=== PATIENT | female | born 1985 | race Caucasian/White ===

== ENCOUNTER → 2017-02-03 | Outpatient (CLI) | payer MEDICAID, SELFPAY ==
--- NOTE | 2017-02-04 06:50 | REP ---
PELVIC ULTRASOUND: Real-time sonographic evaluation of the pelvis performed utilizing transabdominal technique. Comparison made with prior study of 10/26/2014. Bladder measures 7.6 x 6.1 x 9.3 cm. Uterus is again noted to be markedly enlarged and heterogeneous consistent with fibroid changes. It measures 14.4 x 9.0 x 9.6 cm. The endometrial stripe is obliterated and not visualized. No intrauterine fluid collection is seen. There are multiple fibroids present. The largest fibroid seen measures 5.3 x 7.0 x 5.0 cm. Right ovary is normal in size and echotexture measuring 4.2 x 1.3 x 2.7 cm. There is no right ovarian torsion, with blood flow seen in the right ovary with duplex Doppler evaluation, RI 0.50. Left ovary could not be visualized. Trace free fluid is seen. IMPRESSION: Enlarged fibroid uterus as discussed in detail above. Signed by Darius Metzger MD 02/04/2017 08:34 P
== END ==
LOC: M RAD 15:14
PROVIDERS: ATTEND Physician Assistant
DX: R19.00 Intra-abdominal and pelvic swelling, mass and lump, unspecified site (principal); D25.1 Intramural leiomyoma of uterus

== ENCOUNTER → 2018-01-31 | Outpatient (CLI) | payer SELFPAY ==
[2018-01-31 15:32] LABS: BASO % 0.6 % (0.0-1.0); EOS % 0.4 % (0.0-3.0); HEMATOCRIT 27.2 % (36.0-47.0); HEMOGLOBIN 7.5 g/dl (12.0-15.5); LYMPH # 1.2 10^3/uL (1.5-4.5); LYMPH % 22.8 % (24.0-44.0); MEAN CORPUSCULAR HEMOGLOBIN 22.3 pg (27.0-33.0); MEAN CORPUSCULAR HGB CONC 27.6 g/dl (32.0-36.5); MONO # 0.4 10^3/uL (0.0-0.8); MONO % 8.2 % (0.0-5.0); NEUTROPHILS # 3.5 10^3/uL (1.8-7.7); NEUTROPHILS % 67.6 % (36.0-66.0); PLATELET COUNT, AUTOMATED 441 10^3/uL (150-450); RED BLOOD COUNT 3.36 10^6/uL (4.00-5.40); WHITE BLOOD COUNT 5.2 10^3/uL (4.0-10.0)
== END ==
LOC: M WUC 13:40
PROVIDERS: ATTEND Physician Assistant
DX: F41.0 Panic disorder [episodic paroxysmal anxiety] (principal)

== ENCOUNTER 2018-03-02 09:59 | Emergency (ER) | payer SELFPAY ==
[~2018-03-02] VITALS: Ht 162.6 cm; Wt 47.7 kg
[2018-03-02 10:31] LABS: BASO % 0.4 % (0.0-1.0); EOS % 0.7 % (0.0-3.0); HEMATOCRIT 34.2 % (36.0-47.0); HEMOGLOBIN 10.4 g/dl (12.0-15.5); LYMPH # 0.9 10^3/uL (1.5-4.5); LYMPH % 19.1 % (24.0-44.0); MEAN CORPUSCULAR HEMOGLOBIN 29.4 pg (27.0-33.0); MEAN CORPUSCULAR HGB CONC 30.4 g/dl (32.0-36.5); MEAN CORPUSCULAR VOLUME 96.6 fl (80.0-96.0); MONO # 0.4 10^3/uL (0.0-0.8); MONO % 8.7 % (0.0-5.0); NEUTROPHILS # 3.2 10^3/uL (1.8-7.7); NEUTROPHILS % 70.9 % (36.0-66.0); PLATELET COUNT, AUTOMATED 371 10^3/uL (150-450); RED BLOOD COUNT 3.54 10^6/uL (4.00-5.40); WHITE BLOOD COUNT 4.5 10^3/uL (4.0-10.0)
[2018-03-02 10:44] LABS: INR 0.92; PROTHROMBIN TIME 12.5 SECONDS (12.1-14.4)
[2018-03-02 10:45] LABS: PARTIAL THROMBOPLASTIN TIME 27.1 SECONDS (25.4-37.6)
[2018-03-02 11:08] LABS: HCG, SERUM QUALITATIVE NEGATIVE (NEGATIVE)
[2018-03-02 11:15] LABS: ANISOCYTOSIS 1+; HYPOCHROMASIA 1+
[2018-03-02 11:16] LABS: PLATELET ESTIMATE NORMAL (NORMAL)
[2018-03-02 12:20] VITALS: BP 117/66
[2018-03-02] MEDS ORDERED: IBUP-1022 PO (12:35)
--- NOTE | 2018-03-02 13:43 | REP ---
Pelvic sonography: History: Abnormal vaginal bleeding. Comparison pelvic sonography February 03, 2017. This prior study showed a uterine enlargement with a fibroid change. The largest fibroid seen then measured 7.0 cm. Fibroid uterine enlargement was observed sonographically in this patient on October 26, 2014 as well. Findings: Transabdominal and endovaginal scanning are performed. Uterine enlargement is again seen. Very little normal uterine tissue is visible. Heterogeneous fibroid uterine enlargement is observed. The endometrial stripe could not be identified or measured. The largest fibroid measures 8.8 x 7.3 x 8.2 cm which is larger than on previous study. Normal ovaries are seen bilaterally. The right ovary measures 4.4 x 1.9 x 3.8 cm. Left ovarian dimensions are 4.1 x 2.5 x 1.8 cm. Impression: Enlarged heterogeneous fibroid uterus. The largest fibroid seen today measures 8.8 cm in greatest diameter which represents interval enlargement when compared with January 2017 prior study. Electronically Signed by Gautam Foster MD 03/02/2018 07:39 P
--- NOTE | 2018-03-04 08:26 | ED PDOC ---
Post-Departure Follow-Up dr tobias faxed formal report of pelvic us for fu Graham Hu MD Mar 04, 2018 08:26
== END 2018-03-02 12:43 | disposition home or self-care (01) ==
LOC: M ED 09:59
DX: N93.8 Other specified abnormal uterine and vaginal bleeding (principal); D50.9 Iron deficiency anemia, unspecified

== ENCOUNTER 2018-04-07 09:18 | Emergency (ER) | payer OTHER, SELFPAY ==
[~2018-04-07] VITALS: Ht 160 cm; Wt 47.7 kg
[~2018-04-07 09:18] MED LIST: IBUP-1022 PO
[2018-04-07 09:57] LABS: BASO % 0.7 % (0.0-1.0); EOS # 0.1 10^3/uL (0.0-0.50); EOS % 1.7 % (0.0-3.0); HEMATOCRIT 28.7 % (36.0-47.0); HEMOGLOBIN 9.5 g/dl (12.0-15.5); LYMPH # 0.9 10^3/uL (1.5-4.5); LYMPH % 31.1 % (24.0-44.0); MEAN CORPUSCULAR HEMOGLOBIN 33.9 pg (27.0-33.0); MEAN CORPUSCULAR HGB CONC 33.1 g/dl (32.0-36.5); MEAN CORPUSCULAR VOLUME 102.5 fl (80.0-96.0); MONO # 0.3 10^3/uL (0.0-0.8); MONO % 8.4 % (0.0-5.0); NEUTROPHILS # 1.7 10^3/uL (1.8-7.7); NEUTROPHILS % 57.8 % (36.0-66.0); PLATELET COUNT, AUTOMATED 285 10^3/uL (150-450)
[2018-04-07 10:28] LABS: BLOOD UREA NITROGEN 5 MG/DL (7-18); CALCIUM LEVEL 8.3 MG/DL (8.5-10.1); CARBON DIOXIDE LEVEL 25 MEQ/L (21-32); CHLORIDE LEVEL 110 MEQ/L (98-107); CREATININE FOR GFR 0.68 MG/DL (0.55-1.30); GLOMERULAR FILTRATION RATE > 60.0 (>60); GLUCOSE, FASTING 114 MG/DL (70-100); POTASSIUM SERUM 4.6 MEQ/L (3.5-5.1); SODIUM LEVEL 141 MEQ/L (136-145)
[2018-04-07 10:43] VITALS: BP 110/65
== END 2018-04-07 11:11 | disposition home or self-care (01) ==
LOC: M ED 09:18
DX: D25.9 Leiomyoma of uterus, unspecified (principal); N93.8 Other specified abnormal uterine and vaginal bleeding

== ENCOUNTER 2018-05-02 08:16 | Emergency (ER) | payer OTHER, SELFPAY ==
[~2018-05-02] VITALS: Ht 160 cm; Wt 48.1 kg
[2018-05-02 09:05] LABS: HEMATOCRIT 34.1 % (36.0-47.0); MEAN CORPUSCULAR HEMOGLOBIN 34.1 pg (27.0-33.0); MEAN CORPUSCULAR HGB CONC 32.3 g/dl (32.0-36.5); MEAN CORPUSCULAR VOLUME 105.6 fl (80.0-96.0); PLATELET COUNT, AUTOMATED 326 10^3/uL (150-450); RED BLOOD COUNT 3.23 10^6/uL (4.00-5.40); WHITE BLOOD COUNT 3.3 10^3/uL (4.0-10.0)
[2018-05-02 09:30] LABS: BLOOD UREA NITROGEN 6 MG/DL (7-18); CALCIUM LEVEL 8.5 MG/DL (8.5-10.1); CARBON DIOXIDE LEVEL 25 MEQ/L (21-32); CHLORIDE LEVEL 109 MEQ/L (98-107); CREATININE FOR GFR 0.65 MG/DL (0.55-1.30); GLOMERULAR FILTRATION RATE > 60.0 (>60); GLUCOSE, FASTING 102 MG/DL (70-100); POTASSIUM SERUM 3.9 MEQ/L (3.5-5.1); SODIUM LEVEL 142 MEQ/L (136-145)
[2018-05-02 09:32] LABS: HCG, SERUM QUALITATIVE NEGATIVE (NEGATIVE)
[2018-05-02 10:00] VITALS: BP 108/67
== END 2018-05-02 10:03 | disposition home or self-care (01) ==
LOC: M ED 08:16
DX: N93.9 Abnormal uterine and vaginal bleeding, unspecified (principal); D25.9 Leiomyoma of uterus, unspecified; D64.9 Anemia, unspecified

== ENCOUNTER 2018-07-08 11:34 | Emergency (ER) | payer OTHER ==
[~2018-07-08] VITALS: Ht 160 cm; Wt 47.7 kg
[2018-07-08] MEDS ORDERED: ACET-683 PO (11:45)
[2018-07-08 12:20] LABS: HEMATOCRIT 35.8 % (36.0-47.0); HEMOGLOBIN 11.7 g/dl (12.0-15.5); MEAN CORPUSCULAR HEMOGLOBIN 34.3 pg (27.0-33.0); MEAN CORPUSCULAR HGB CONC 32.7 g/dl (32.0-36.5); PLATELET COUNT, AUTOMATED 309 10^3/uL (150-450); RED BLOOD COUNT 3.41 10^6/uL (4.00-5.40); WHITE BLOOD COUNT 3.7 10^3/uL (4.0-10.0)
[2018-07-08 12:47] LABS: BLOOD UREA NITROGEN 6 MG/DL (7-18); CALCIUM LEVEL 8.8 MG/DL (8.5-10.1); CARBON DIOXIDE LEVEL 27 MEQ/L (21-32); CHLORIDE LEVEL 109 MEQ/L (98-107); CREATININE FOR GFR 0.57 MG/DL (0.55-1.30); GLOMERULAR FILTRATION RATE > 60.0 (>60); GLUCOSE, FASTING 99 MG/DL (70-100); SODIUM LEVEL 141 MEQ/L (136-145)
[2018-07-08] MEDS ORDERED: NS 1,000 ML IV ONE (13:15)
--- NOTE | 2018-07-08 13:51 | REP ---
Clinical: Menorrhagia. Abnormal uterine bleeding. Technique: Transabdominal pelvic ultrasound followed by transvaginal examination for better evaluation of the endometrium and adnexa with color Doppler evaluation of the ovaries. Findings: Large heterogeneous diffusely myomatous uterus measures roughly 16.5 x 10.3 x 12.9 cm and innumerable fibroids distorting the normal uterine architecture and the endometrium is poorly evaluated. The largest discrete fibroids are identified measuring 6.5 x 5 cm, 6.3 x 6.6 x 5.8 cm, and 8.0 x 7.7 x 5.2 cm. Left ovary is not visualized. The right ovary is normal in appearance and vascularity without torsion and measures 4.4 x 1.6 x 3.1 cm. No ascites or adnexal mass. Impression: Heterogeneous enlarged diffusely myomatous uterus. Normal right ovary. Left ovary not visualized. Electronically Signed by Lew Hook MD 07/08/2018 01:43 P
[2018-07-08 14:01] LABS: CHLAMYDIA DNA AMPLIFICATION NEGATIVE (NEGATIVE); GC DNA AMPLIFICATION NEGATIVE (NEGATIVE)
[2018-07-08] MEDS ORDERED: ZOFR4TAB16 PO (14:24)
[2018-07-08] MEDS ORDERED: SPRI28TA PO (14:24)
[2018-07-08 14:36] VITALS: BP 104/68
--- NOTE | 2018-07-10 07:33 | ED PDOC ---
Post-Departure Follow-Up dr zapata faxed formal report of pelvic us for fu Graham Hu MD July 10, 2018 07:33
== END 2018-07-08 14:38 | disposition home or self-care (01) ==
LOC: M ED 11:34
DX: N93.8 Other specified abnormal uterine and vaginal bleeding (principal); D25.9 Leiomyoma of uterus, unspecified; Z79.3 Long term (current) use of hormonal contraceptives

== ENCOUNTER → 2018-08-15 | Outpatient (CLI) | payer OTHER ==
[~2018-08-15] MED LIST changes: +ACET-683 PO; +HYDR-4571 PO; +IBUP-1114 PO; +IRON27TA2 PO; +MULTCAP PO; +PROHANCE 279.3MG/ML 5ML VIAL (A9576) As Ordered ONE; +PURE500C5 PO; +SPRI28TA PO; +ZOFR4TAB16 PO
--- NOTE | 2018-08-16 10:12 | REP ---
MRI PELVIS WITH AND WITHOUT CONTRAST: TECHNIQUE: Multiple sequences obtained in the axial, coronal, and sagittal planes prior to and following the intravenous administration of 9 mL ProHance. Correlation made with ultrasound of the pelvis 07/08/2018. Uterus is again noted to be markedly enlarged. It is retroverted and retroflexed. Dimensions are 19.8 x 10.3 x 12.7 cm. Myometrium is essentially replaced by multiple ill-defined fibroids, most of which are intramural. There are several submucosal fibroids, the largest is anterior measuring 2.2 cm in diameter. The largest intramural fibroids are in the posterior fundus with maximum diameter of approximately 6.2 cm and in the right inferior uterine body approximately 7.5 cm in diameter. A few small subserosal fibroids are also seen. Endometrial echo complex is somewhat distorted by these multiple innumerable fibroids. Maximum thickness is 4 mm. There is a moderate amount of endometrial fluid primarily in the lower uterine segment region. Thickness of the fluid in that region is approximately 8 mm. There is diffuse heterogeneous enhancement of the fibroids. The junctional zone is not well defined and I suspect an element of adenomyosis as well. Ovaries are normal in size and appearance. A dominant follicle in the right ovary measures 1.5 cm maximally. There is no adnexal mass. There is no pelvic adenopathy. There is a small amount of free fluid. The visualized osseous structures are unremarkable. IMPRESSION: Markedly enlarged fibroid uterus as discussed in detail above. Junctional zone is not defined and I suspect there may also be an element of adenomyosis. There is no endometrial thickening, with maximum AP thickness 4 mm. There is moderate endometrial fluid present primarily in the lower uterine segment. Small amount of free fluid. No adnexal mass. Electronically Signed by Darius Metzger MD 08/16/2018 11:41 A
== END ==
LOC: M RAD 17:12
PROVIDERS: ATTEND Obstetrics & Gynecology
DX: D25.1 Intramural leiomyoma of uterus (principal); N92.1 Excessive and frequent menstruation with irregular cycle; R10.814 Left lower quadrant abdominal tenderness
CPT/HCPCS: 72197; A9576

== ENCOUNTER 2018-09-06 13:34 | Day surgery (SDC) | payer OTHER ==
[~2018-09-06] VITALS: Ht 162.6 cm; Wt 47.7 kg
[2018-09-06 07:21] LABS: HEMATOCRIT 35.4 % (36.0-47.0); MEAN CORPUSCULAR HEMOGLOBIN 32.4 pg (27.0-33.0); MEAN CORPUSCULAR HGB CONC 31.1 g/dl (32.0-36.5); MEAN CORPUSCULAR VOLUME 104.1 fl (80.0-96.0); PLATELET COUNT, AUTOMATED 304 10^3/uL (150-450); WHITE BLOOD COUNT 4.7 10^3/uL (4.0-10.0)
[2018-09-06 07:41] LABS: BLOOD UREA NITROGEN 10 MG/DL (7-18); CALCIUM LEVEL 8.7 MG/DL (8.5-10.1); CARBON DIOXIDE LEVEL 26 MEQ/L (21-32); CHLORIDE LEVEL 111 MEQ/L (98-107); CREATININE FOR GFR 0.58 MG/DL (0.55-1.30); GLOMERULAR FILTRATION RATE > 60.0 (>60); GLUCOSE, FASTING 94 MG/DL (70-100); POTASSIUM SERUM 3.7 MEQ/L (3.5-5.1); SODIUM LEVEL 141 MEQ/L (136-145)
[2018-09-06 08:06] LABS: HCG, SERUM QUALITATIVE NEGATIVE (NEGATIVE)
[~2018-09-06 13:34] MED LIST changes: +ACETAMINOPHEN TAB 650MG DOSE (2X325MG) PO PRN; +BISACODYL 10 MG SUPP PR PRN; +BUPIVACAINE HCL 0.5% 10 ML VIAL As Ordered ONE; +EMBOSPHERE MICROSPHERES 500-700UM(MICRONS) 2ML SYRINGE As Ordered ONE; -HYDR-4571 PO; +ISOVUE-300 61% 50ML VIAL (Q9967) As Ordered ONE; +LIDOCAINE 2% MDV 20 ML VIAL As Ordered ONE; +MIDAZOLAM INJ 2 MG/2 ML VIAL (J2250) As Ordered ONE; +MOM 30ML SUSPENSION UDC PO PRN; +MORPHINE 4 MG/ML 1ML VIAL/SYRINGE (J2270) IV PRN; +NORCO, ANEXSIA 5/325MG TABLET (HYDROcodone/ACETAMINOPHEN) As Ordered ONE; +ONDANSETRON 4MG/2ML VIAL (J2405) IV PRN; -PROHANCE 279.3MG/ML 5ML VIAL (A9576) As Ordered ONE; -PURE500C5 PO; +diphenhydrAMINE INJ 50MG/ML VIAL (J1200) As Ordered ONE; +fentaNYL 100 MCG/2 ML INJECTION (J3010) As Ordered ONE
[2018-09-06 13:55] VITALS: BP 104/65
--- NOTE | 2018-09-06 14:19 | HPEPDOC ---
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 Lemus 09/06/18 for uterine embolization for history of uterine fibroid, patient is subsequently being admitted to [facility] for pain control. The patient is examined in interventional radiology. The patient states her pain is currently 3/10, she received Devon at 10:24 AM. Denies any fevers, chills, weakness, fatigue, ALFARO, CP, SOB, cough, palpitations, N/V/D or changes in bowel or bladder habits. PMHx: Uterine fibroid Iron deficiency anemia PSHX: Patient denies SOCHX: Resides in: [place], [place] Marital Status: Single Kids: None Employment: [employer] Tobacco use: Denies ETOH: Denies FAMHX: Mother: Alive, well Father: Alive, well Siblings: 3 brothers, one sister Alive, well ROS: As noted in HPI, otherwise 11pt ROS of systems reviewed and unremarkable. PE: GEN: 32yoF, appears stated age. Well-nourished, well developed. No acute distress. Alert and oriented x 3. Pleasant, interactive. HEENT: Normocephalic, atraumatic. Moist mucous membranes. CHEST: Regular rate and rhythm, +S1, +S2 LUNGS: Clear to auscultation bilaterally. No wheezes, rales, or rhonchi. Breathing appears symmetric and easy. Patient is speaking in full sentences. No accessory muscle use. ABD: Round, soft, non-distended. +Bowel sounds throughout. No rebound or guarding. No costovertebral angle tenderness. EXT: Pulses 2+ bilaterally dorsalis pedis and radial. No lower extremity edema appreciated. SKIN: [place], dry, warm. Capillary refill <2sec. No rashes. NEURO: Alert and oriented x 3. Cranial nerves III-XII are intact. No focal deficits appreciated. A&P: Uterine fibroids/status post uterine fibroid embolization. Patient is to be admitted to outpatient. IV Zofran as needed. Tylenol, Devon, IV morphine, Toradol as needed. Bowel care ordered. AM labs. Fe deficiency anemia. Hgb 09/06/18 11.0 Recheck CBC in AM. monitor. Vital Signs Vital Signs Date Time Temp Pulse Resp B/P (MAP) Pulse Ox O2 Delivery O2 Flow Rate FiO2 09/06/18 13:37 82 16 98 09/06/18 10:22 2 09/06/18 06:43 97.8 Laboratory Data Labs 24H Laboratory Tests 2 09/06/18 06:59: Nucleated Red Blood Cells % (auto) 0.0, Anion Gap 4L, Glomerular Filtration Rate > 60.0, Blood Urea Nitrogen 10, Creatinine 0.58, Sodium Level 141, Potassium Level 3.7, Chloride Level 111H, Carbon Dioxide Level 26, Calcium Level 8.7, Human Chorionic Gonadotropin, Qual NEGATIVE CBC/BMP Laboratory Tests 09/06/18 06:59 Red Blood Count 3.40 L, Mean Corpuscular Volume 104.1 H, Mean Corpuscular Hemogl obin 32.4, Mean Corpuscular Hemoglobin Concent 31.1 L, Red Cell Distribution Width 13.3, Calcium Level 8.7 Home Medications Scheduled Ferrous Gluconate (Iron) 236 Mg Tablet, 28 MG PO BID Multivitamin (Multivitamins) 1 Each Capsule, 1 CAP PO DAILY Scheduled PRN Acetaminophen (Acetaminophen) 500 Mg Tablet, 1,000 MG PO Q6H PRN for BACK PAIN Miscellaneous Medications Ibuprofen (Ibuprofen) 400 Mg Tablet, 400 MG PO for pain Allergies Coded Allergies: No Known Allergies (Unverified , 07/08/18) A-FIB/CHADSVASC A-FIB History Current/History of A-Fib/PAF?: No Angélica Lopez Sep 06, 2018 14:19
[2018-09-06] MEDS: KETOROLAC 30 MG/ML VIAL (J1885) IV PRN ×2 (14:51→21:57)
[2018-09-06 18:00] VITALS: BP 114/79
[2018-09-06] MEDS: NORCO, ANEXSIA 5/325MG TABLET (HYDROcodone/ACETAMINOPHEN) PO PRN (19:06)
[2018-09-06 20:00] VITALS: BP 103/67
[2018-09-06] MEDS: SENOKOT S TAB PO SCH (21:57)
[2018-09-06] MEDS: DOCUSATE SODIUM 100 MG CAP PO SCH (21:57)
[2018-09-07] VITALS: BP 97/51
[2018-09-07] MEDS: KETOROLAC 30 MG/ML VIAL (J1885) IV PRN ×2 (03:41→12:53)
[2018-09-07 04:00] VITALS: BP 107/57
[2018-09-07 06:43] LABS: HEMATOCRIT 32.6 % (36.0-47.0); HEMOGLOBIN 10.3 g/dl (12.0-15.5); MEAN CORPUSCULAR HEMOGLOBIN 32.5 pg (27.0-33.0); MEAN CORPUSCULAR HGB CONC 31.6 g/dl (32.0-36.5); MEAN CORPUSCULAR VOLUME 102.8 fl (80.0-96.0); PLATELET COUNT, AUTOMATED 265 10^3/uL (150-450); RED BLOOD COUNT 3.17 10^6/uL (4.00-5.40); WHITE BLOOD COUNT 7.2 10^3/uL (4.0-10.0)
[2018-09-07 06:57] LABS: ALBUMIN 3.3 GM/DL (3.2-5.2); ALT/SGPT 13 U/L (12-78); BILIRUBIN,TOTAL 0.1 MG/DL (0.2-1.0); BLOOD UREA NITROGEN 7 MG/DL (7-18); CALCIUM LEVEL 8.2 MG/DL (8.5-10.1); CARBON DIOXIDE LEVEL 26 MEQ/L (21-32); CHLORIDE LEVEL 112 MEQ/L (98-107); CREATININE FOR GFR 0.59 MG/DL (0.55-1.30); GLOMERULAR FILTRATION RATE > 60.0 (>60); GLUCOSE, FASTING 82 MG/DL (70-100); POTASSIUM SERUM 3.8 MEQ/L (3.5-5.1); SODIUM LEVEL 143 MEQ/L (136-145)
[2018-09-07 08:00] VITALS: BP 103/60
[2018-09-07] MEDS: DOCUSATE SODIUM 100 MG CAP PO SCH (08:40)
[2018-09-07] MEDS: NORCO, ANEXSIA 5/325MG TABLET (HYDROcodone/ACETAMINOPHEN) PO PRN (08:40)
[2018-09-07] MEDS: SENOKOT S TAB PO SCH (08:40)
[2018-09-07] MEDS ORDERED: HYDR-4571 PO (09:56)
[2018-09-07 12:00] VITALS: BP 106/72
--- NOTE | 2018-09-29 10:29 | REPIR ---
DATE OF PROCEDURE: 09/06/2018 ATTENDING SURGEON: Dr. Anthony Lemus [employer] F[employer] HAND: Mateo Tovar and Bushra Cardenas. PREOPERATIVE DIAGNOSES: Dysmenorrhea, uterine fibroids. POSTOPERATIVE DIAGNOSES: Dysmenorrhea, uterine fibroids. PROCEDURE: Right common femoral arterial cannulation aortogram, iliofemoral angiogram, selective left internal iliac artery catheter placement with angiogram, selective left uterine artery catheter placement with angiogram, and left uterine artery embolization with Embosphere 500-700 micrometers times two, selective right internal iliac artery angiogram, selective right uterine artery catheter placement with angiography, Mynx closure of the right common femoral arteriotomy. INDICATION: The patient is a 32-year-old female with severe uterine fibroids and dysmenorrhea who was evaluated and felt to be a good candidate for uterine fibroid embolization. Risks, benefits, and alternative treatment options were discussed with the patient. ANESTHESIA: Local with sedation with 2 mg of Versed, 100 mcg of fentanyl, and 10 mL of 2% lidocaine mixed with 0.5% Marcaine, Benadryl 50 mg. FLUOROSCOPY TIME: 7.6 minutes. CONTRAST: 15 mL of Isovue-300. SEDATION TIME: 8:10 a.m. to 9:23 a.m. for a total of 73 minutes. COMPLICATIONS: None. DRAINS: None. SPECIMENS: None. IMPLANTS: Mynx closure used to close the arteriotomy in the right common femoral artery. PROCEDURE: The patient was taken to the angiography suite, placed supine on the angiography table, and then prepped and draped in a standard surgical fashion. The right common femoral artery was cannulated with a micropuncture needle after anesthetizing the overlying skin and subcutaneous tissue with local anesthesia. The catheter was placed in aorta and aortogram was performed. The catheter was pulled down level of the bifurcation iliac arteries and an iliofemoral angiogram was performed. The catheter was directed over the bifurcation and placed in the left internal iliac artery and angiogram was performed. This showed the positioning of the urine artery. The catheter was advanced into the uterine artery and an angiogram was performed showing filling of the uterus. The left uterine artery was then embolized using Embosphere measuring 500-700 micrometers and two syringe of the Embosphere were used. Final angiogram showed less filling of the urine artery branches. The right internal iliac artery was an selectively cannulated and an angiogram performed showed the uterine artery. The right uterine artery was cannulated and angiogram performed showing minimal flow into the uterine artery branches and no embolization of the right uterine artery needed. Catheters and wires were removed. A Mynx closure was used to close the arteriotomy in the right common femoral artery with an additional 10 minutes of adjunctive pressure applied for hemostasis. Dressings were then applied. The patient tolerated procedure well. All instrument, sponge, and needle counts were correct at the end of case. There were no complications. Dr. Lemus was present for and directed the entire case. The patient was transferred to the holding area and subsequently to the floor in stable condition.
== END 2018-09-07 13:30 | disposition home or self-care (01) ==
LOC: M OPCLIPED 13:34 → M PED 13:55 → M OPCLIPED 09-07 13:30
PROVIDERS: ATTEND Surgery Vascular Surgery
DX: N94.6 Dysmenorrhea, unspecified (principal); D25.9 Leiomyoma of uterus, unspecified; D50.9 Iron deficiency anemia, unspecified
CPT/HCPCS: 36247; 36415; 37243; 75736; 80048; 80053; 84703; 85027; 96374; 96376; 99152; 99153; C1760; C1769; C1887; C1894; J1200; J1885; J2250; J3010; Q9967

== ENCOUNTER 2018-10-19 15:22 | Emergency (ER) | payer OTHER ==
[~2018-10-19] VITALS: Ht 160 cm; Wt 49.5 kg
[~2018-10-19 15:22] MED LIST changes: -ACETAMINOPHEN TAB 650MG DOSE (2X325MG) PO PRN; -BISACODYL 10 MG SUPP PR PRN; -BUPIVACAINE HCL 0.5% 10 ML VIAL As Ordered ONE; -EMBOSPHERE MICROSPHERES 500-700UM(MICRONS) 2ML SYRINGE As Ordered ONE; +HYDR-4571 PO; -ISOVUE-300 61% 50ML VIAL (Q9967) As Ordered ONE; -LIDOCAINE 2% MDV 20 ML VIAL As Ordered ONE; -MIDAZOLAM INJ 2 MG/2 ML VIAL (J2250) As Ordered ONE; -MOM 30ML SUSPENSION UDC PO PRN; -MORPHINE 4 MG/ML 1ML VIAL/SYRINGE (J2270) IV PRN; -NORCO, ANEXSIA 5/325MG TABLET (HYDROcodone/ACETAMINOPHEN) As Ordered ONE; -ONDANSETRON 4MG/2ML VIAL (J2405) IV PRN; -diphenhydrAMINE INJ 50MG/ML VIAL (J1200) As Ordered ONE; -fentaNYL 100 MCG/2 ML INJECTION (J3010) As Ordered ONE
[2018-10-19] MEDS ORDERED: PURE500C5 PO (15:37)
[2018-10-19 16:14] LABS: BASO % 0.5 % (0.0-1.0); EOS # 0.1 10^3/uL (0.0-0.5); EOS % 1.3 % (0.0-3.0); HEMATOCRIT 27.5 % (36.0-47.0); HEMOGLOBIN 8.7 g/dl (12.0-15.5); LYMPH # 1.7 10^3/uL (1.5-5.0); LYMPH % 30.3 % (24.0-44.0); MEAN CORPUSCULAR HEMOGLOBIN 31.3 pg (27.0-33.0); MEAN CORPUSCULAR HGB CONC 31.6 g/dl (32.0-36.5); MEAN CORPUSCULAR VOLUME 98.9 fl (80.0-96.0); MONO # 0.5 10^3/uL (0.0-0.8); MONO % 9.7 % (0.0-5.0); NEUTROPHILS # 3.2 10^3/uL (1.5-8.5); NEUTROPHILS % 57.8 % (36.0-66.0); PLATELET COUNT, AUTOMATED 375 10^3/uL (150-450); RED BLOOD COUNT 2.78 10^6/uL (4.00-5.40); WHITE BLOOD COUNT 5.5 10^3/uL (4.0-10.0)
[2018-10-19 16:27] LABS: HCG, SERUM QUALITATIVE NEGATIVE (NEGATIVE)
[2018-10-19 16:32] LABS: BLOOD UREA NITROGEN 12 MG/DL (7-18); CALCIUM LEVEL 8.9 MG/DL (8.5-10.1); CARBON DIOXIDE LEVEL 26 MEQ/L (21-32); CHLORIDE LEVEL 107 MEQ/L (98-107); CREATININE FOR GFR 0.74 MG/DL (0.55-1.30); GLOMERULAR FILTRATION RATE > 60.0 (>60); GLUCOSE, FASTING 89 MG/DL (70-100); SODIUM LEVEL 141 MEQ/L (136-145)
--- NOTE | 2018-10-19 21:21 | REPVR ---
EXAM: US Pelvis Complete, Transabdominal EXAM DATE/TIME: 10/19/2018 8:42 PM CLINICAL HISTORY: 32 years old, female; Menstruation abnormalities; Excessive menstruation; Prior surgery; Surgery date: 1-6 months; Additional info: Heavy vaginal bleeding TECHNIQUE: Imaging protocol: Real-time transabdominal pelvic ultrasound with image documentation. Complete exam. COMPARISON: US PELVIC NON-OB COMPLETE 07/08/2018 1:11 PM FINDINGS: Uterus measures 16.4 x 12 x 13 cm in size. Multiple uterine masses are present measuring up to 6.4 cm. Endometrial stripe is not visualized secondary to the multiple masses. Patient has apparently undergone a recent embolization and masses are less defined and smaller compared to the prior exam. Right ovary measures 3.8 x 1.7 x 4.1 cm in size. No dominant mass or cyst. Left ovary measures 2.4 x 1.0 x 1.1 cm in size. No dominant mass or cyst. Doppler flow is documented in both ovaries. No abnormal volume of free fluid within the pelvis. IMPRESSION: Myomatous uterus area multiple ill-defined masses. Some appear smaller in size compared to the prior ultrasound and may be related to the clinically reported embolization procedure. Nonvisualization of the endometrium. Normal appearing ovaries with normal Doppler flow Electronically signed by: Ryley Simpson On 10/19/2018 21:21:10 PM
[2018-10-19 21:45] VITALS: BP 116/60
== END 2018-10-19 21:48 | disposition home or self-care (01) ==
LOC: M ED 15:22
DX: N93.8 Other specified abnormal uterine and vaginal bleeding (principal); D25.9 Leiomyoma of uterus, unspecified; D50.9 Iron deficiency anemia, unspecified; Z79.899 Other long term (current) drug therapy

== ENCOUNTER → 2019-12-16 | Outpatient (CLI) | payer OTHER ==
[~2019-12-16] MED LIST changes: +ONDA4TAB6 PO; +PURE500C5 PO
== END ==
LOC: M LABSMTC 08:10
PROVIDERS: ATTEND Anesthesiology
DX: Z01.818 Encounter for other preprocedural examination (principal); Z20.828 Contact with and (suspected) exposure to other viral communicable diseases
CPT/HCPCS: C9803; U0003

== ENCOUNTER 2019-12-21 11:40 | Day surgery (SDC) | payer OTHER ==
[2019-12-21] VITALS (17 sets, daily range): BP systolic 85–128; BP diastolic 16–76
[~2019-12-21] VITALS: Ht 160 cm; Wt 53.1 kg
[~2019-12-21 11:40] MED LIST changes: +KETOROLAC 60MG 2ML VIAL As Ordered ONE; +LIDOCAINE 2% 100MG/5ML SDV (FOR ANES.) As Ordered ONE; +LR 1,000 ML IV ONE; +MIDAZOLAM INJ 2MG/2ML VIAL (J2250 PER 1MG) As Ordered ONE; -ONDA4TAB6 PO; +ONDANSETRON 4MG/2ML VIAL As Ordered ONE; +ROCURONIUM BROMIDE 50 MG/5 ML VIAL As Ordered ONE; +SUGAMMADEX SODIUM 500 MG/5 ML VIAL (BRIDION) As Ordered ONE; +ceFAZolin SOD 2 GM in IV 1 EA IV ONE; +dexameTHASONE 4 MG/ML 1ML VIAL (J1100 PER 1MG) As Ordered ONE; +fentaNYL 250 MCG/5 ML INJECTION (J3010) As Ordered ONE; +propofoL 200 MG/20 ML VIAL As Ordered ONE
[2019-12-21 12:13] LABS: HEMOGLOBIN 10.4 g/dl (12.0-15.5); MEAN CORPUSCULAR HEMOGLOBIN 29.2 pg (27.0-33.0); MEAN CORPUSCULAR HGB CONC 30.6 g/dl (32.0-36.5); MEAN CORPUSCULAR VOLUME 95.5 fl (80.0-96.0); PLATELET COUNT, AUTOMATED 461 10^3/uL (150-450); RED BLOOD COUNT 3.56 10^6/uL (4.00-5.40); WHITE BLOOD COUNT 6.6 10^3/uL (4.0-10.0)
[2019-12-21] MEDS ORDERED: ACETAMINOPHEN 1000MG 100ML IV BTL (OFIRMEV) (J0131 PER 10MG) As Ordered ONE (14:48)
[2019-12-21] MEDS ORDERED: ROCURONIUM BROMIDE 50 MG/5 ML VIAL As Ordered ONE (15:12)
[2019-12-21] MEDS ORDERED: PHENYLephrine HCL 500 MCG/5 ML (100MCG/ML) SYRINGE (J2370) As Ordered ONE (15:29)
[2019-12-21] MEDS ORDERED: ePHEDrine SULFATE 25 MG/5 ML(5MG/ML) SYRINGE As Ordered ONE (15:29)
[2019-12-21] MEDS ORDERED: propofoL 200 MG/20 ML VIAL As Ordered ONE (16:06)
[2019-12-21] MEDS ORDERED: MORPHINE 1MG/ML IN 0.9% NACL 100ML IV BAG As Ordered ONE (16:27)
[2019-12-21] MEDS ORDERED: ONDANSETRON 4MG/2ML VIAL IV PRN (17:00)
[2019-12-21] MEDS ORDERED: fentaNYL 100 MCG/2 ML INJECTION (J3010) IV PRN (17:00)
[2019-12-21] MEDS ORDERED: PERCOCET 5MG/325MG TAB PO PRN (17:00)
[2019-12-21] MEDS ORDERED: LR 1,000 ML IV SCH ×2 (17:00→17:15)
[2019-12-21] MEDS ORDERED: METOCLOPRAMIDE INJ 10MG/2ML VIAL (J2765 PER 1) IV PRN (17:00)
[2019-12-21] MEDS ORDERED: NALOXONE INJ 0.4MG/1ML VIAL (J2310 PER 1MG) IV PRN (17:15)
[2019-12-21] MEDS ORDERED: NALBUPHINE HCL 10 MG/ML AMP (J2300) IV PRN (17:15)
[2019-12-21] MEDS ORDERED: MORPHINE 1MG/ML IN 0.9% NACL 100ML IV BAG IV PRN (17:15)
[2019-12-21] MEDS ORDERED: diphenhydrAMINE 50MG/ML VIAL (J1200) IV PRN (17:15)
[2019-12-21] MEDS ORDERED: NS 1,000 ML IV SCH (17:15)
[2019-12-21] MEDS ORDERED: EPIDURAL/PCA KEYS XX PRN (17:15)
[2019-12-21] MEDS ORDERED: KCL 20MEQ in NS 1000ML 1,000 ML IV ONE (19:15)
[2019-12-21 20:23] LABS: HEMATOCRIT 22.7 % (36.0-47.0)
[2019-12-21 20:26] LABS: HEMOGLOBIN 6.7 g/dl (12.0-15.5)
[2019-12-21] MEDS ORDERED: NORCO, ANEXSIA 5/325MG TABLET (HYDROcodone/ACETAMINOPHEN) PO PRN (21:00)
[2019-12-21] MEDS: NORCO, ANEXSIA 5/325MG TABLET (HYDROcodone/ACETAMINOPHEN) PO PRN (21:42)
[2019-12-22 00:44] VITALS: BP 107/54
[2019-12-22] MEDS: IBUPROFEN 600MG TAB PO PRN ×3 (00:47→14:04)
[2019-12-22] MEDS: NORCO, ANEXSIA 5/325MG TABLET (HYDROcodone/ACETAMINOPHEN) PO PRN ×2 (01:40→10:56)
[2019-12-22 02:00] VITALS: BP_SYST 112; BP_SYST 125; BP_DIAS 60; BP_DIAS 71
[2019-12-22 03:00] VITALS: BP 110/62
[2019-12-22] MEDS ORDERED: traMADol 50 MG TAB PO ONE (03:45)
[2019-12-22] MEDS: SIMETHICONE 80 MG CHEW TAB PO PRN ×2 (03:51→13:52)
[2019-12-22 05:23] LABS: HEMATOCRIT 27.4 % (36.0-47.0)
[2019-12-22 05:38] LABS: HEMOGLOBIN 8.9 g/dl (12.0-15.5)
[2019-12-22 06:00] VITALS: BP 121/72
[2019-12-22 10:00] VITALS: BP 105/65
[2019-12-22 10:05] LABS: HEMATOCRIT 28.2 % (36.0-47.0)
[2019-12-22 14:00] VITALS: BP 128/71
[2019-12-22] MEDS ORDERED: ACETAMINOPHEN TAB 650MG DOSE (2X325MG) PO ONE (16:15)
--- NOTE | 2019-12-25 07:16 | RO ---
DATE OF OPERATION: 12/21/2019 PREOPERATIVE DIAGNOSIS/INDICATION FOR SURGERY: Pain, bleeding, and fibroids. POSTOPERATIVE DIAGNOSIS: Pain, bleeding, and fibroids. PROCEDURE: Total abdominal hysterectomy with salpingectomy bilaterally. SURGEON: Leigh Gonzalez MD DATABASE DEVELOPER: None. ANESTHESIA: General endotracheal anesthesia. BRIEF DESCRIPTION OF PROCEDURE AND FINDINGS: Jazlyn was brought to the operating room where sufficient general endotracheal anesthesia was induced. She was prepped, draped, and positioned in the usual sterile fashion with a Kiser in place. She had an approximately 24 weeks-sized uterus, but was thin. A vertical midline incision, stopping short of the umbilicus, was made. Sharp dissection was continued through subcutaneous tissues to the level of the rectus fascia, which was elevated with Thomas clamps and vertically incised. Then, the muscles were bluntly in the midline. The peritoneum was entered superiorly and that incision extended visualizing the large pelvis-filling fibroid uterus. It was immobile [id number] and projected anteriorly quite a bit, but we were able to rotate the uterus with the right adnexa coming forward so that we could identify the markedly attenuated round ligament. Thuy, for the back bleeding was placed, and a De Stern was placed over the round. We clamped, transected, and ligated that individually rather than the entire broad because the three components were out. We then were able to lift up the tubal mesentery, clamped, transected, and ligated that, and bring the tube up towards the uterus. It subsequently pulled off on the right side, but at this point, we had the tube dissected free so that was attached to the uterus but not distally attached. We then could get to the utero-ovarian suspensory ligament and carefully clamped, transected, and ligated this. The ovary was right against the uterus, so we had a very shortened utero-ovarian suspensory ligament, but we were able to get that clamped in there and free that ovary so we could place that back in the abdomen and leave the blood supply to that ovary intact. We then carefully worked our way down the broad to control the superior most aspect of the uterine vasculature, and having done that, we moved back to the left side. With the right side freed, we were then able to rotate the uterus and just roll up, again, a markedly attenuated round ligament. Utero-ovarian suspensory ligament was also foreshortened on the left, but we were able to fit both the back bleeding clamp and a Sam Stern clamps on that pedicle at this point and free that ovary and also transect the round and the superior aspect, of course, of the broad. We left the tube with the uterus with some effort. Then, we created a bladder flap anteriorly and then controlled the superior most aspect of the uterine vasculature on the left side. Then, having partially controlled the uterines, we grasped a couple of the larger anterior fibroids and dissected those out, bringing them directly out the anterior vertical wound, so we did not have a lot of tissue floating about. We were just removing the uterus in sections and we carefully did myomectomies until we could deliver the uterus up through the wound. I then continued dissection of the uterine vasculature, which we worked down along just against the lateral aspect of the uterus to the cervix, which was markedly attenuated, and the vagina was somewhat lengthened giving us reasonable access to this. We were able to carefully clamp, transect, and ligate the uterosacrals, which were held for resecuring to the cuff. Then, we made the colpotomy and then we removed bulk of the uterus so that we could remove the cervix separately with more ease. So, the uterus, the attached left tube, and the detached right tube, were sent to pathology in a few sections. The cervix was then incised vertically in the posterior aspects so that we could protect the length of the vagina in this only 33-year-old woman. With that incision posteriorly, we were able to see the inferior aspect of the cervix and carefully make the colpotomy with the scissors around the base of that, holding the vaginal edge with Kochers as we went. We then resecured the uterosacrals and did angle stitches of 0-Vicryl and then closed the cuff with running locked stitch of 0-Vicryl with good hemostasis and the approximation achieved. We then reinvestigated the ovarian pedicles and confirmed normal ovaries bilaterally with evidence of good remaining blood supply. They were well away from the vagina, so it did not appear to me that they needed to be secured in place in any fashion. They appeared to sit in the ovarian fossa reasonably well in the absence of that rather enlarged uterus which extended up over the top of both the rounds and the utero-ovarian suspensory ligaments. So much of the fibroid uterus was actually above those tissues, so the pedicle to the ovaries was not unduly long. We did irrigate the pelvis copiously and then suctioned that out, and confirmed again good hemostasis, lack of injury to the bladder, the ureters, or bowel. The procedure was then ended with retractor and packing removed. The peritoneal wound was closed and the muscles were reapproximated using 0-Vicryl. Then, the fascia was closed with a stitch of 0-Vicryl as well. Then, the subcuticular tissues were reapproximated with interrupted stitches and the skin closed with sincere. A dry sterile dressing was then applied. ESTIMATED BLOOD LOSS: About 200 mL. FLUID REPLACEMENT: Crystalloid. COMPLICATIONS: None. CONDITION AND DISPOSITION: Jazlyn tolerated the procedure well and was recovering in the recovery room in good condition. FILOMENA
== END 2019-12-22 17:27 | disposition home or self-care (01) ==
LOC: M SDC 11:40 → M MSPAV 17:22 → M SDC 12-22 17:27
PROVIDERS: ATTEND Obstetrics & Gynecology
DX: R10.2 Pelvic and perineal pain (principal); D25.9 Leiomyoma of uterus, unspecified; N93.9 Abnormal uterine and vaginal bleeding, unspecified; N94.10 Unspecified dyspareunia; D64.9 Anemia, unspecified; Z79.899 Other long term (current) drug therapy; Z87.891 Personal history of nicotine dependence
CPT/HCPCS: 36415; 36430; 58150; 81025; 85014; 85018; 85027; 86850; 86900; 86901; 86920; 88307; 96360; 96361; J0131; J0690; J1100; J1885; J2250; J2370; J2405; J3010; P9016

== ENCOUNTER 2019-12-25 11:39 | Emergency (ER) | payer OTHER ==
[~2019-12-25 11:39] MED LIST changes: -KETOROLAC 60MG 2ML VIAL As Ordered ONE; -LIDOCAINE 2% 100MG/5ML SDV (FOR ANES.) As Ordered ONE; -LR 1,000 ML IV ONE; -MIDAZOLAM INJ 2MG/2ML VIAL (J2250 PER 1MG) As Ordered ONE; -ONDANSETRON 4MG/2ML VIAL As Ordered ONE; -ROCURONIUM BROMIDE 50 MG/5 ML VIAL As Ordered ONE; -SUGAMMADEX SODIUM 500 MG/5 ML VIAL (BRIDION) As Ordered ONE; -ceFAZolin SOD 2 GM in IV 1 EA IV ONE; -dexameTHASONE 4 MG/ML 1ML VIAL (J1100 PER 1MG) As Ordered ONE; -fentaNYL 250 MCG/5 ML INJECTION (J3010) As Ordered ONE; -propofoL 200 MG/20 ML VIAL As Ordered ONE
[2019-12-25] MEDS ORDERED: NS 1,000 ML IV ONE (12:15)
[2019-12-25 12:52] LABS: BASO % 0.1 % (0.0-1.0); EOS # 0.1 10^3/uL (0.0-0.5); EOS % 0.9 % (0.0-3.0); HEMATOCRIT 35.1 % (36.0-47.0); HEMOGLOBIN 11.1 g/dl (12.0-15.5); LYMPH # 0.8 10^3/uL (1.5-5.0); LYMPH % 10.1 % (24.0-44.0); MEAN CORPUSCULAR HEMOGLOBIN 29.4 pg (27.0-33.0); MEAN CORPUSCULAR HGB CONC 31.6 g/dl (32.0-36.5); MEAN CORPUSCULAR VOLUME 93.1 fl (80.0-96.0); MONO # 0.6 10^3/uL (0.0-0.8); MONO % 7.4 % (0.0-5.0); NEUTROPHILS # 6.3 10^3/uL (1.5-8.5); NEUTROPHILS % 81.4 % (36.0-66.0); PLATELET COUNT, AUTOMATED 502 10^3/uL (150-450); RED BLOOD COUNT 3.77 10^6/uL (4.00-5.40); WHITE BLOOD COUNT 7.7 10^3/uL (4.0-10.0)
[2019-12-25 13:22] LABS: ALBUMIN 3.6 GM/DL (3.2-5.2); ALT/SGPT 10 U/L (12-78); BILIRUBIN,DIRECT < 0.1 MG/DL (0.0-0.2); BILIRUBIN,TOTAL 0.3 MG/DL (0.2-1.0); BLOOD UREA NITROGEN 5 MG/DL (7-18); CALCIUM LEVEL 9.5 MG/DL (8.5-10.1); CARBON DIOXIDE LEVEL 26 MEQ/L (21-32); CHLORIDE LEVEL 105 MEQ/L (98-107); CREATININE FOR GFR 0.52 MG/DL (0.55-1.30); GLOMERULAR FILTRATION RATE > 60.0 (>60); GLUCOSE, FASTING 106 MG/DL (70-100); LIPASE 54 U/L (73-393); POTASSIUM SERUM 4.2 MEQ/L (3.5-5.1); SODIUM LEVEL 138 MEQ/L (136-145)
[2019-12-25] MEDS ORDERED: ISOVUE-370 76% 100ML VIAL As Ordered ONE (13:41)
--- NOTE | 2019-12-25 14:41 | REP ---
INDICATION: abdominal pain; post operative; r/o bleeding/perforation. COMPARISON: None. TECHNIQUE: Bolus of 100 mL Isovue 370 scanning through the abdomen pelvis with coronal and sagittal reconstructions provided. FINDINGS: CT abdomen: The lung bases are clear. The heart is not enlarged there is no pericardial thickening or effusion. No hiatal hernia. There are scattered small amounts of free intraperitoneal air abutting the deep fascia of the rectus and oblique muscles in the upper and mid abdomen. Skin sincere are noted from the open hysterectomy reported 4 days ago. The liver, spleen, gallbladder, pancreas, adrenal glands and kidneys are unremarkable small bowel loops are distended proximally with the loops of proximal to mid jejunum dilated and with some thickening of the wall there are fluid levels in those loops. Diameters up to 3.4 cm noted. There is some abdominal ascites evident in the peritoneal gutters bilaterally. Remainder of small bowel loops are of smaller caliber but with fluid within. There is edema in the mesentery of the abdomen. The aorta is without aneurysm or other acute finding no hydronephrosis hydroureter or renal stone. Bone windows show lumbar lower thoracic spine and associated ribs all intact. CT pelvis: There is small amount of free air in the deep pelvis similar to the upper abdomen with skin sincere from open hysterectomy. Uterus is absent there is some air bubbles in the vaginal vault but none at the cuff within the pelvis. Small bowel loops and colon in the pelvis shows collapse in thickening of wiley. There is a moderate amount of the free fluid in the deep pelvis consistent with the blood but not hematoma or formed collection. No air bubbles within to suggest abscess. Bladder is partially filled without stone or mass. The bony pelvis shows sacrum, SI joints, pelvis and hips without any acute finding IMPRESSION: 1. Skin sincere from recent open hysterectomy with small scattered volumes of intra-intrapelvic air. This is likely related to the recent surgery but the amount of free air is somewhat greater than one might expect for postop day 4. I no definite abscess or perforation. 2. Moderate amount of the fluid in the deep pelvis, the slightly hyperdense suggesting blood. It appears to be freely moving and not hematoma at this time. It surrounds several bowel loops in the deep pelvis and vaginal cuff. 3. Dilated proximal small bowel loops and some ascites in the upper abdomen are noted. Findings suggest ileus. Distal small bowel loops show lesser caliber in the pelvis with thickened wiley with showing edema. 4. Solid organs of the upper abdomen unremarkable. No other significant finding. <Electronically signed by Ananda Smith > 12/25/19 [id number]
[2019-12-25] MEDS ORDERED: ONDA4TAB6 PO (15:28)
[2019-12-25 15:50] VITALS: BP 118/76
--- NOTE | 2019-12-27 13:11 | ED PDOC ---
Post-Departure Follow-Up dr zapata faxed formal report of ct abd/p for fu Graham Hu MD Dec 27, 2019 13:11
== END 2019-12-25 15:54 | disposition home or self-care (01) ==
LOC: EDBD 11:39 → M ED 11:39
DX: R11.2 Nausea with vomiting, unspecified (principal); R19.7 Diarrhea, unspecified; G89.18 Other acute postprocedural pain
CPT/HCPCS: 36415; 74177; 80048; 80076; 83690; 85025; 96360; 96361; 99284; Q9967